=== PATIENT | female | born 1985 | race African-American/Black ===

== ENCOUNTER 2016-06-28 10:30 | Emergency (ER) | payer OTHER ==
[2016-06-28 10:35] VITALS: BP 139/100; PULSE 75; TEMP 98.6; BMI 20.6
[2016-06-28] MEDS ORDERED: LIDOCAINE HCL 2% (50ML VIAL) INF ONE (10:37)
[2016-06-28] MEDS ORDERED: SODIUM BICARBONATE 2.4 MEQ/5 ML SDVIAL NR ONE (10:40)
[2016-06-28] MEDS ORDERED: LIDOCAINE HCL 2% (20ML MULTI-DOSE VIAL) NR ONE (10:43)
[2016-06-28] MEDS ORDERED: SODIUM BICARBONATE 2.4 MEQ/5 ML SDVIAL ONE (10:43)
--- NOTE | 2016-06-28 11:25 | PDOC ---
History of Present Illness - General Chief Complaint: Laceration Stated Complaint: LEFT THUMB LACERATION Time Seen by Provider: 06/28/16 10:37 History Source: Patient Exam Limitations: No Limitations - History of Present Illness Initial Comments: 06/28/16 11:19 CHIEF COMPLAINT: "I cut my thumb." HISTORY OF PRESENT ILLNESS: Patient is a healthy 30-year-old female with no significant past medical history. She was at work this morning using a knife in the kitchen. She is right-handed and she cut her left thumb over the IP joint with a kitchen knife. She went to the nurse at work and she had a dressing applied. She comes in now for evaluation of the wound. There is no numbness to the distal thumb. There is no difficulty with range of motion. Immunizations: Last tetanus was less than 5 years ago REVIEW OF SYSTEMS: No fever or chills Positive laceration of left thumb No other injuries No numbness or weakness in the thumb Past History - Past Medical History Allergies/Adverse Reactions: Allergies Allergy/AdvReac Type Severity Reaction Status Date / Time No Known Allergies Allergy Verified 06/28/16 10:32 Home Medications: Ambulatory Orders Naproxen [EC-Naprosyn] 375 mg PO BID PRN #10 tablet.ec 06/28/16 Other medical history: DENIES - Reproductive History (#): 3 Para: 1 Therapeutic (s) & number: Yes (1) Spontaneous : 1 - Immunization History Immunization Up to Date: Yes - Psycho/Social/Smoking Cessation Hx Anxiety: No Suicidal Ideation: No Smoking History: Never smoked Have you smoked in the past 12 months: No Number of Cigarettes Smoked Daily: 0 Hx Alcohol Use: No Drug/Substance Use Hx: No Substance Use Type: None *Physical Exam - Vital Signs Last Vital Signs Temp Pulse Resp BP Pulse Ox 98.6 F 75 18 139/100 100 06/28/16 10:30 06/28/16 10:30 06/28/16 10:30 06/28/16 10:30 06/28/16 10:30 - Physical Exam Comments: 06/28/16 11:21 GENERAL: The patient is awake, alert, and fully oriented, in no acute distress. HEAD: Normal with no signs of trauma. EYES: Pupils equal, round and reactive to light, extraocular movements intact, sclera anicteric, conjunctiva clear. EXTREMITIES: The left thumb has a laceration overlying the IP joint on the palmar surface. Motor strength of the flexor tendon is full and intact. NEUROLOGICAL: Normal speech, normal gait. Distal sensation over the left thumb is intact to light touch and to pinprick. PSYCH: Normal mood, normal affect. SKIN: Warm, Dry, normal turgor, no rashes or lesions noted. Approximately 1 cm laceration of the left thumb. Procedures - Laceration/Wound Repair Left 1st digit Hand Wound Length: to 2.5 cm Wound Explored: clean, no foreign body present Wound's Depth, Shape: superficial Irrigated w/ Saline: Yes Betadine Prep: (high pressure, high volume saline lavage) Anesthesia: 2% Lidocaine Amount of Anesthetic (ccs): 8 (left thumb digital block) Wound Repaired With: Sutures Suture Size/Type: 5:0 Number of Sutures: 3 Layer Closure: No Sterile Dressing Applied: Yes (bacitracin and dry sterile dressing applied) Progress: 06/28/16 11:24 Patient with left thumb laceration as noted in physical examination sensation and flexion are intact Skin prepped with alcohol at the base of the thumb 2% lidocaine with sodium bicarbonate digital block Good anesthesia obtained and High pressure, high volume normal saline lavage to the open wound, wound explored, no foreign body 5-0 nylon, simple, interrupted 3 placed with good hemostasis Bacitracin and dry sterile dressing Patient advised regarding treatment and follow-up ED Treatment Course - Medications Given in the ED: ED Medications Discontinued Medications Generic Name Dose Route Start Last Admin Trade Name Freq PRN Reason Stop Dose Admin Lidocaine HCl 1 mg 06/28/16 10:37 06/28/16 10:51 Xylocaine 2% INF 06/28/16 10:38 1 mg ONCE ONE Administration Sodium Bicarbonate 1 meq 06/28/16 10:40 06/28/16 10:52 Neut 4% Injection - NR 06/28/16 10:41 1 meq ONCE ONE Administration Medical Decision Making - Medical Decision Making 06/28/16 11:25 Patient with left thumb laceration, less than 1 hour old, clean dry wound with minimal bleeding, no neurovascular or tendon injury Wound repair performed, dressing applied, patient advised *DC/Admit/Observation/Transfer Diagnosis at time of Disposition: Laceration of thumb Qualifiers: Encounter type: initial encounter Laterality: left Qualified Code(s): S61.012A - Laceration without foreign body of left thumb without damage to nail, initial encounter - Discharge Dispostion Disposition: HOME Condition at time of disposition: Stable Admit: No - Prescriptions Prescriptions: Naproxen [EC-Naprosyn] 375 mg PO BID PRN #10 tablet.ec PRN Reason: Pain - Patient Instructions Printed Discharge Instructions: DI for Laceration Repair Additional Instructions: Today you were treated for a laceration to your left thumb. Keep the wound clean and dry. Keep it covered if you're at work. It is okay to remove the dressing and take a shower with clean water. After your shower, at the area dry with a clean towel, apply a thin layer of bacitracin antibiotic ointment, and a Band-Aid. The stitches should be removed in 7 to 8 days, either at your doctor's office or come back to the emergency room for a wound check and suture removal. If you develop any signs of infection such as redness, swelling, pus or red streaks, increasing pain and set of resolving pain, return immediately for evaluation to your doctor or to the emergency room.
== END 2016-06-28 11:35 | disposition home or self-care (01) ==
LOC: FER 10:30
PROC: 0HQGXZZ Repair Left Hand Skin, External Approach (ICD-10-PCS; principal; 2016-06-28)
DX: S61.012A Laceration without foreign body of left thumb without damage to nail, initial encounter (principal); W26.0XXA Contact with knife, initial encounter; Y93.9 Activity, unspecified; Y92.9 Unspecified place or not applicable; Y99.0 Civilian activity done for income or pay
CPT/HCPCS: 99284-25

== ENCOUNTER 2016-08-27 15:10 | Emergency (ER) | payer OTHER ==
[2016-08-27 15:14] VITALS: BP 144/89; PULSE 70; TEMP 98.6; BMI 21.2
--- NOTE | 2016-08-27 15:28 | PDOC ---
History of Present Illness - General Chief Complaint: Toothache Stated Complaint: toothache Time Seen by Provider: 08/27/16 15:16 - History of Present Illness Initial Comments: 08/27/16 15:22 30-year-old female with a negative past medical history She states that her left upper molar had a filling in it She's said that a few months ago it cracked apart and the whole tooth fell out, leaving the root in place She is had some increasing pain and swelling for the past 2 days She has not seen a dentist yet She denies any fevers or chills, and denies any facial swelling Past History - Past Medical History Allergies/Adverse Reactions: Allergies Allergy/AdvReac Type Severity Reaction Status Date / Time No Known Allergies Allergy Verified 08/27/16 15:11 Home Medications: Ambulatory Orders Amoxicillin - [Amoxicillin 500mg Capsule -] 500 mg PO TID #21 capsule 08/27/16 Oxycodone HCl/Acetaminophen [Percocet 5-325 mg Tablet] 1 - 2 combo PO Q6H PRN # 14 tablet MDD 6 08/27/16 Other medical history: DENIES - Reproductive History (#): 3 Para: 1 Therapeutic (s) & number: Yes (1) Spontaneous : 1 - Immunization History TDAP Vaccination: Yes (05/04/13) Immunization Up to Date: Yes - Psycho/Social/Smoking Cessation Hx Anxiety: No Suicidal Ideation: No Smoking History: Never smoked Have you smoked in the past 12 months: No Number of Cigarettes Smoked Daily: 0 Hx Alcohol Use: No Drug/Substance Use Hx: No Substance Use Type: None *Physical Exam - Vital Signs Last Vital Signs Temp Pulse Resp BP Pulse Ox 98.6 F 70 18 144/89 100 08/27/16 15:10 08/27/16 15:10 08/27/16 15:10 08/27/16 15:10 08/27/16 15:10 - Physical Exam Comments: 08/27/16 15:23 Physical exam Last Vital Signs Temp Pulse Resp BP Pulse Ox 98.6 F 70 18 144/89 100 08/27/16 15:10 08/27/16 15:10 08/27/16 15:10 08/27/16 15:10 08/27/16 15:10 Patient is alert and ambulatory and answering questions without difficulties There is no facial swelling or erythema Left upper molar area There is evidence of a lost tooth (L upper molar), with a gap, and the roots of the tooth are still in the gap There is some irritation in the area There is no drainage or bleeding, and no purulent discharge The remainder of the dentition appears normal Mouth and oropharynx is otherwise benign Medical Decision Making - Medical Decision Making 08/27/16 15:24 Broken tooth, with beginnings of secondary dental infection Will treat with Percocet and amoxicillin Patient will need to be seen by a dentist as soon as possible *DC/Admit/Observation/Transfer Diagnosis at time of Disposition: Pain, dental, Dental infection - Discharge Dispostion Disposition: HOME Condition at time of disposition: Stable - Prescriptions Prescriptions: Amoxicillin - [Amoxicillin 500mg Capsule -] 500 mg PO TID #21 capsule Oxycodone HCl/Acetaminophen [Percocet 5-325 mg Tablet] 1 - 2 combo PO Q6H PRN # 14 tablet MDD 6 PRN Reason: Pain - Patient Instructions Printed Discharge Instructions: DI for Dental Pain Additional Instructions: Motrin for daytime pain Percocet if needed for more severe pain-do not drive when taking this medication Amoxicillin-one pill 3 times a day Please see a dentist as soon as possible - Post Discharge Activity Work/School Note: Back to Work
== END 2016-08-27 15:41 | disposition home or self-care (01) ==
LOC: FER 15:10
DX: K03.81 Cracked tooth (principal); K04.7 Periapical abscess without sinus; K08.89 Other specified disorders of teeth and supporting structures
CPT/HCPCS: 99282-25

== ENCOUNTER 2016-09-08 18:32 | Emergency (ER) | payer OTHER ==
[2016-09-08 18:42] VITALS: BP 150/86; PULSE 100; TEMP 98; BMI 20.7
--- NOTE | 2016-09-08 19:54 | PDOC ---
History of Present Illness - General Chief Complaint: Rash Stated Complaint: RASH Time Seen by Provider: 09/08/16 19:37 History Source: Patient Exam Limitations: No Limitations - History of Present Illness Initial Comments: 09/08/16 19:49 30 year old female with no significant medical or surgical history presents with rash all over body x 2 weeks. States no recent travels or ill contacts. Rash is no accompanied by any other symptoms. Timing/Duration: reports: other (2 weeks) Severity: Yes: mild Location: reports: generalized Respiratory Risk Factors: reports: no cause identified Modifying Factors: improves with: scratching Associated Symptoms: reports: denies symptoms Past History - Travel Traveled outside of the country in the last 30 days: No Close contact w/someone who was outside of country & ill: No - Past Medical History Allergies/Adverse Reactions: Allergies Allergy/AdvReac Type Severity Reaction Status Date / Time No Known Allergies Allergy Verified 09/08/16 18:42 Home Medications: Ambulatory Orders Amoxicillin - [Amoxicillin 500mg Capsule -] 500 mg PO TID #21 capsule 08/27/16 Oxycodone HCl/Acetaminophen [Percocet 5-325 mg Tablet] 1 - 2 combo PO Q6H PRN # 14 tablet MDD 6 08/27/16 Hydrocortisone 1% Cream [Hytone 1% Cream -] 1 applic TP BID #1 tube 09/08/16 - Reproductive History (#): 3 Para: 1 Therapeutic (s) & number: Yes (1) Spontaneous : 1 - Immunization History TDAP Vaccination: Yes (05/04/13) Immunization Up to Date: Yes - Psycho/Social/Smoking Cessation Hx Anxiety: No Suicidal Ideation: No Smoking History: Never smoked Have you smoked in the past 12 months: No Number of Cigarettes Smoked Daily: 0 Information on smoking cessation initiated: No Hx Alcohol Use: No Drug/Substance Use Hx: No Substance Use Type: None Review of Systems - Review of Systems Able to Perform ROS?: Yes Constitutional: No: Chills, Fever, Night Sweats, Weakness HEENTM: No: Nose Pain, Nose Congestion, Nose Bleeding, Throat Pain, Throat Swelling, Mouth Pain Respiratory: No: Cough, Orthopnea, Shortness of Breath, Wheezing, Productive cough Cardiac (ROS): No: Edema, Palpitations : No: Burning, Incontinence Musculoskeletal: No: Back Pain, Gout, Joint Pain, Joint Swelling Integumentary: No: Bruising, Flushing, Lesions Neurological: No: Numbness, Paresthesia, Weakness *Physical Exam - Vital Signs Last Vital Signs Temp Pulse Resp BP Pulse Ox 98 F 100 H 18 150/86 99 09/08/16 18:40 09/08/16 18:40 09/08/16 18:40 09/08/16 18:40 09/08/16 18:40 - Physical Exam General Appearance: Yes: Nourished, Appropriately Dressed. No: Apparent Distress HEENT: positive: EOMI, STEFANO, Normal ENT Inspection, TMs Normal, Pharynx Normal Neck: positive: Supple. negative: Lymphadenopathy (R), Lymphadenopathy (L) Respiratory/Chest: positive: Lungs Clear Cardiovascular: positive: Regular Rhythm, Regular Rate, S1, S2 Extremity: positive: Normal Capillary Refill, Normal Inspection, Normal Range of Motion. 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 Also requesting gc/chlamydia testing 09/08/16 22:53 Rx: hydrocortisone *DC/Admit/Observation/Transfer Diagnosis at time of Disposition: Rash and nonspecific skin eruption - Discharge Dispostion Disposition: HOME Condition at time of disposition: Improved Admit: No - Prescriptions Prescriptions: Hydrocortisone 1% Cream [Hytone 1% Cream -] 1 applic TP BID #1 tube - Referrals Referrals: Luzma Jain MD [Primary Care Provider] - - Patient Instructions Additional Instructions: Use mild unscented lotion and soap. May return for shortness of breath or worsening of rash - Post Discharge Activity Work/School Note: Back to Work
== END 2016-09-08 20:18 | disposition home or self-care (01) ==
LOC: JERFT 18:32
DX: R21 Rash and other nonspecific skin eruption (principal)
CPT/HCPCS: 36415; 87491; 87591; 99281-25

== ENCOUNTER 2016-09-14 20:16 | Emergency (ER) | payer OTHER ==
--- NOTE | 2016-09-14 20:23 | PDOC ---
History of Present Illness - General History Source: Patient Exam Limitations: No Limitations - History of Present Illness Initial Comments: 09/14/16 20:34 The patient is a 30 year old female, with significant past medical history of a dental abscess on 08/27/16 (prescribed amoxicillin) , who presents today complaining of a rash on her arms, legs, and back that started while taking amoxicillin. She states that the rash is itchy and irritating. She visited [facility] 2 days ago for the rash and was given a hydrocortisone cream that she has used without relief. She notes that she has taken amoxicillin previously without a reaction Denies fever, chills, nausea, vomiting. Review of Systems General: No fevers or chills, no weakness, no weight loss HEENT: No change in vision. No sore throat,. No ear pain CardioVascular: No chest pain or shortness of breath Respiratory:No cough, or wheezing. Gastrointestinal: no nausea, vomiting, diarrhea or constipation, No rectal bleeding Genitourinary: No dysuria, hematuria, or frequency Musculoskeletal: No joint or muscle pain or swelling Neurologic: No headache, vertigo, dizziness or loss of consciousness Psychiatric: nor depression Skin: +rash on the back, arms and legs bilaterally.No rashes or easy bruising Endocrine: no increased thirst or abnormal weight change Allergic: no skin or latex allergy All other systems reviewed and normal Physical Exam GENERAL: The patient is awake, alert, and fully oriented, in no acute distress. HEAD: Normal with no signs of trauma. EYES: Pupils equal, round and reactive to light, extraocular movements intact, sclera anicteric, conjunctiva clear. EXTREMITIES: Normal range of motion, no edema. NEUROLOGICAL: Normal speech, normal gait. PSYCH: Normal mood, normal affect. SKIN: Fine papular rash on bilateral extremities and trunk. Warm, Dry, normal turgor, no lesions noted. <Lesvia Krishnan - Last Filed: 09/14/16 20:34> - General History Source: Patient Exam Limitations: No Limitations - History of Present Illness Initial Comments: 09/14/16 20:48 A portion of this note was documented by scribe services under my direction. I have reviewed the details of the note, within reason, and agree with the documentation. The case summary and management plan written by me. Assessment and plan: This is a 30-year-old female comes in with a rash status post being given amoxicillin. Patient was given some topical cream for it but it has not resolved so I started her on some prednisone. Patient given first dose here and discharged with a Medrol Dosepak. <Francis Spaulding I - Last Filed: 09/14/16 20:52> - General Chief Complaint: Rash Stated Complaint: ITCHING RASH Time Seen by Provider: 09/14/16 20:22 Past History <Lesvia Krishnan - Last Filed: 09/14/16 20:34> - Reproductive History (#): 3 Para: 1 Therapeutic (s) & number: Yes (1) Spontaneous : 1 - Immunization History TDAP Vaccination: Yes (05/04/13) Immunization Up to Date: Yes - Psycho/Social/Smoking Cessation Hx Anxiety: No Suicidal Ideation: No Smoking History: Never smoked Have you smoked in the past 12 months: No Number of Cigarettes Smoked Daily: 0 Hx Alcohol Use: No Drug/Substance Use Hx: No Substance Use Type: None <Francis Spaulding I - Last Filed: 09/14/16 20:52> - Past Medical History Allergies/Adverse Reactions: Allergies Allergy/AdvReac Type Severity Reaction Status Date / Time amoxicillin Allergy Mild Rash Verified 09/14/16 20:37 Home Medications: Ambulatory Orders Methylprednisolone [Medrol Dose Deshawn] 4 mg PO ASDIR #21 tablet 09/14/16 *Physical Exam - Vital Signs Last Vital Signs Temp Pulse Resp BP Pulse Ox 98.0 F 80 16 140/100 100 09/14/16 20:21 09/14/16 20:21 09/14/16 20:21 09/14/16 20:21 09/14/16 20:21 <Lesvia Krishnan - Last Filed: 09/14/16 20:34> *DC/Admit/Observation/Transfer - Attestations Scribe Attestion: 09/14/16 20:35 Documentation prepared by MARILY Santos, acting as product manager medical device for Francis Spaulding MD. <Lesvia Krishnan - Last Filed: 09/14/16 20:34> - Discharge Dispostion Admit: No <Francis Spaulding I - Last Filed: 09/14/16 20:52> Diagnosis at time of Disposition: Allergic drug rash - Discharge Dispostion Disposition: HOME Condition at time of disposition: Good - Prescriptions Prescriptions: Methylprednisolone [Medrol Dose Deshawn] 4 mg PO ASDIR #21 tablet - Referrals Referrals: Luzma Jain MD [Primary Care Provider] - - Patient Instructions Additional Instructions: Get the prescription filled for the Medrol Dosepak and started tomorrow evening take the medication with dinner don't take on an empty stomach Return to the emergency department immediately with ANY new, persistent or worsening symptoms. Continue any medications as previously prescribed by your physician. You should follow up with your primary doctor as soon as possible regarding today's emergency department visit. . Please make sure your doctor reviews the results of your emergency evaluation. Thank you for coming to the Emergency Department today for your care. It was a pleasure to see you today. Please note that your evaluation is INCOMPLETE until you follow-up with your doctor. Make sure that you tell you're healthcare providers you're ALLERGIC to penicillin so it isn't given 2 units future
[2016-09-14] MEDS ORDERED: predniSONE 20 MG TABLET (UD) PO ONE (20:30)
[2016-09-14] MEDS ORDERED: predniSONE 20 MG TABLET (UD) ONE (20:34)
[2016-09-14 20:38] VITALS: BP 140/100; PULSE 80; TEMP 98; BMI 20.6
== END 2016-09-14 20:47 | disposition home or self-care (01) ==
LOC: FER 20:16
DX: L27.0 Generalized skin eruption due to drugs and medicaments taken internally (principal)
CPT/HCPCS: 99281-25

== ENCOUNTER 2018-02-02 15:12 | Emergency (ER) | payer SELFPAY ==
--- NOTE | 2018-02-02 15:19 | PDOC ---
History of Present Illness - General Chief Complaint: Cold Symptoms Stated Complaint: COUGH Time Seen by Provider: 02/02/18 15:18 - History of Present Illness Initial Comments: Joyce is a 32 yo F with a pmh of Asthma who presents for a dry cough of the past 3 weeks. She had what she describes as URI symptoms 3 weeks prior with nasal congestion, sore throught, and originally produced a bit of sputum with her cough. She is presenting to the ER today because she is worried and concerned that the cough has not gone away. It is a dry cough which is worse at night. She denies taking any medications for Asthma. She denies taking DURAN inhibitors or ARBs. Denies postprandial abdominal pain or other GERD like symptoms. Denies chest pain, SOB, difficulty breathing. Denies abdominal pain, back pain, neck pain, headache, blurry vision, recent travel, calf pain, or any other complaints. Allergies: Seasonal, penicillin, amoxicillin. Social Hx: Denies cigarette, alcohol, or illicit drug usage. Pcp: Jean Terrell Past History - Past Medical History Allergies/Adverse Reactions: Allergies Allergy/AdvReac Type Severity Reaction Status Date / Time amoxicillin Allergy Mild Rash Verified 02/02/18 15:13 Penicillins Allergy Verified 02/02/18 15:13 Home Medications: Ambulatory Orders Dextromethorphan Hb/Doxylamine [Robitussin Nighttime Cough Dm] 237 ml PO DAILY # 10 liquid 02/02/18 Fluticasone/Salmeterol [Advair 250-50 Diskus] 1 each IH BID #1 blst.w.dev Norethindrone AC-Eth Estradiol [Junel] 1 each PO DAILY 02/02/18 COPD: No - Reproductive History (#): 3 Para: 1 Therapeutic (s) & number: Yes (1) Spontaneous : 1 - Immunization History TDAP Vaccination: Yes (05/04/13) Immunization Up to Date: Yes - Suicide/Smoking/Psychosocial Hx Smoking History: Never smoked Have you smoked in the past 12 months: No Number of Cigarettes Smoked Daily: 0 Hx Alcohol Use: No Drug/Substance Use Hx: No Substance Use Type: None Review of Systems - Review of Systems Able to Perform ROS?: Yes Comments:: CONSTITUTIONAL: Absent: fever, no chills, no fatigue EYES: Absent: visual changes ENT: Present: sore throat Absent: ear pain CARDIOVASCULAR: Absent: chest pain, no palpitations RESPIRATORY: Present: Cough Absent: no SOB GI: Absent: abdominal pain, no nausea, no vomiting, no constipation, no diarrhea GENITOURINARY: Absent: dysuria, no frequency, no hematuria MUSKULOSKELETAL: Absent: back pain, no arthralgia, no myalgia SKIN: Absent: rash NEURO: Absent: headache *Physical Exam - Vital Signs Last Vital Signs Temp Pulse Resp BP Pulse Ox 0/0 L 02/02/18 15:12 - Physical Exam Comments: GENERAL: Well-appearing, well-nourished. No apparent distress. HEENT: Oropharynx is clear. No lymphadenopathy. Normocephalic, atraumatic. PERRL, EOM intact. CARDIOVASCULAR: Normal S1, S2. Regular rate and rhythm. PULMONARY: Clear to auscultation bilaterally. ABDOMEN: Soft, non-distended, non-tender. EXTREMITIES: Normal ROM in all four extremities. No gross deformities. SKIN: Warm, dry. No rash NEUROLOGICAL: No focal neurological deficits. Medical Decision Making - Medical Decision Making Joyce is a 32 yo F with a pmh of Asthma who presents for a dry cough of the past 3 weeks. There are no sings of infection, no worrisome factors associated with this patient. DD includes but not limited to: Upper airway cough syndrome/postnasal drip vs asthma related cough vs GERD related cough. Plan: Rik [place]. *DC/Admit/Observation/Transfer Diagnosis at time of Disposition: Upper airway cough syndrome, Postnasal drip, Cough variant asthma - Discharge Dispostion Disposition: HOME Condition at time of disposition: Stable Decision to Admit order: No - Prescriptions Prescriptions: Dextromethorphan Hb/Doxylamine [Andreaitusjasmin Nighttime Cough Dm] 237 ml PO DAILY # 10 liquid Fluticasone/Salmeterol [Advair 250-50 Diskus] 1 each IH BID #1 blst.w.dev - Referrals Referrals: Davion Dent MD [Staff Physician] - - Patient Instructions Printed Discharge Instructions: Cough (Alternative Therapy), Cough, DI for Cough -- Adult, [place], Dextrometorfano Additional Instructions: You came into the ER because you were having an annoying dry cough. We believe your cough is likely a result of either asthma or seasonal allergies. We are sending a prescription of Advair and robitussin to you [facility] pharmacy. Please make sure to go and pick it up. Please also make sure to follow up with your primary care doctor in the next 7 to 10 days to ensure you are feeling and getting better and your cough is being resolved. Please come back to the emergency room if your develop new or worsening symptoms such as a worsening cough, blood in your cough, a high fever, vomiting, shortness of breath or difficulty breathing or any other concerns. Thank you for coming to the [facility]. We hope you feel beter soon! Print Language: KOREAN - Post Discharge Activity
[2018-02-02 15:22] VITALS: BMI 24.4
[2018-02-02 15:31] VITALS: BP 130/84; PULSE 86; TEMP 98.6
--- NOTE | 2018-02-02 15:34 | PDOC ---
Attending Attestation - Resident Resident Name: Kenneth Ocasio - ED Attending Attestation I have performed the following: I have examined & evaluated the patient, The case was reviewed & discussed with the resident, I agree w/resident's findings & plan, Exceptions are as noted - HPI HPI: 02/02/18 16:21 Nonproductive cough for 3 weeks. Seasonal ALLERGY symptoms. No shortness of breath, chest pain, fever or chills, or sputum - Physicial Exam PE: 02/02/18 16:21 Afebrile, vital signs normal including normal respiratory rate in the 100% oxygen saturation Lungs are clear. No wheezes rales or rhonchi. Full breath sounds ENT clear - Medical Decision Making 02/02/18 16:22 This is not appear to be infectious. It is most likely seasonal ALLERGIES with bronchospasm, and asthma-like syndrome. The patient is not known to be asthmatic , although she seems to have similar symptoms during the spring and fall Plan trial of cough suppressant at night, inhaled laba and corticosteroid. Follow up book sewer for further
[2018-02-02] MEDS ORDERED: ACETAMINOPHEN 325 MG TABLET (FP) PO ONE (16:00)
[2018-02-02] MEDS ORDERED: guaiFENesin/CODEINE 10 ML UNIT-DOSE CUPS PO ONE (16:00)
[2018-02-02] MEDS ORDERED: guaiFENesin/D-METHORPHAN HB 10 ML UNIT-DOSE CUPS ONE (16:13)
[2018-02-02] MEDS ORDERED: guaiFENesin 200 MG/10 ML 10 ML UNIT-DOSE CUPS PO ONE (16:14)
[2018-02-02] MEDS ORDERED: ACETAMINOPHEN 325 MG TABLET (FP) ONE (16:14)
[2018-02-02] MEDS ORDERED: guaiFENesin/D-METHORPHAN HB 10 ML UNIT-DOSE CUPS PO ONE (16:17)
== END 2018-02-02 16:19 | disposition home or self-care (01) ==
LOC: FER 15:12
DX: R05 Cough (principal); R09.82 Postnasal drip; J45.998 Other asthma
CPT/HCPCS: 99281-25

== ENCOUNTER 2018-03-28 22:21 | Emergency (ER) | payer SELFPAY ==
--- NOTE | 2018-03-28 22:24 | PDOC ---
History of Present Illness - History of Present Illness Initial Comments: This is a 32 year old female with no significant past medical history, who presents to the emergency department today complaining of right lower leg pain for 1 day. Patient reports that she began to feel pain and soreness in the lateral aspect of her right lower leg yesterday without any specific trauma. She denies any contusion to the area. Patient notes soreness is exacerbated with walking and when touching the affected area. She reports the pain is localized to the affected area, and denies any radicular symptoms. Patient denies history of similar symptoms. The patient denies chest pain, shortness of breath, headache and dizziness. Denies fever, chills, nausea, vomit, diarrhea and constipation. Denies dysuria, frequency, urgency and hematuria. PAST MEDICAL HISTORY: no significant history PAST SURGICAL HISTORY: no significant history FAMILY HISTORY: no pertinent history SOCIAL HISTORY: Pt lives with family and is employed. MEDICATIONS: reviewed ALLERGIES: As per nursing notes ROS General: No fevers or chills, no weakness, no weight loss HEENT: No change in vision. No sore throat,. No ear pain CardioVascular: No chest pain or shortness of breath Respiratory:No cough, or wheezing. Gastrointestinal: no nausea, vomiting, diarrhea or constipation, No rectal bleeding Genitourinary: No dysuria, hematuria, or frequency Musculoskeletal: +Right lower leg pain and soreness. No joint or muscle swelling. Neurologic: No headache, vertigo, dizziness or loss of consciousness Psychiatric: nor depression Skin: No rashes or easy bruising Endocrine: no increased thirst or abnormal weight change Allergic: no skin or latex allergy All other systems reviewed and normal PE GENERAL: The patient is awake, alert, and fully oriented, in no acute distress. HEAD: Normal with no signs of trauma. EYES: Pupils equal, round and reactive to light, extraocular movements intact, sclera anicteric, conjunctiva clear. EXTREMITIES: +Right lower leg small contusion/bruise laterally with palpable tenderness. No bony tenderness. No calf tenderness. Normal range of motion, no edema. NEUROLOGICAL: Normal speech, normal gait. PSYCH: Normal mood, normal affect. SKIN: Warm, Dry, normal turgor, no rashes or lesions noted. 03/28/18 22:36 <Rosa Gil - Last Filed: 12/03/18 22:36> - General History Source: Patient Exam Limitations: No Limitations - History of Present Illness Initial Comments: A portion of this note was documented by scribe services under my direction. I have reviewed the details of the note, within reason, and agree with the documentation with the following case summary and management plan written by me. Patient treated in the ED. Nursing notes are reviewed and incorporated into the medical decision-making. Vital signs reviewed. Assessment and plan: This is a 32-year-old female who comes in complaining of pain on her right lateral leg. Patient was noted to have a small contusion of the area. The pain was isolated to the area of contusion. Patient was reassured and discharged home 03/28/18 23:01 <Francis Spaulding I - Last Filed: 03/28/18 23:02> - General Chief Complaint: Pain Stated Complaint: PAIN RIGHT LOWER LEG Time Seen by Provider: 03/28/18 22:24 Past History <Rosa Gil - Last Filed: 03/28/18 22:36> - Past Medical History COPD: No - Reproductive History (#): 3 Para: 1 Therapeutic (s) & number: Yes (1) Spontaneous : 1 - Immunization History TDAP Vaccination: Yes (05/04/13) Immunization Up to Date: Yes - Suicide/Smoking/Psychosocial Hx Smoking History: Never smoked Have you smoked in the past 12 months: No Number of Cigarettes Smoked Daily: 0 Hx Alcohol Use: No Drug/Substance Use Hx: No Substance Use Type: None <Francis Spaulding I - Last Filed: 03/28/18 23:02> - Past Medical History Allergies/Adverse Reactions: Allergies Allergy/AdvReac Type Severity Reaction Status Date / Time amoxicillin Allergy Mild Rash Verified 03/28/18 22:23 Penicillins Allergy Verified 03/28/18 22:23 Home Medications: Ambulatory Orders Fluticasone/Salmeterol [Advair 250-50 Diskus] 1 each IH BID #1 blst.w.dev *Physical Exam - Vital Signs Last Vital Signs Temp Pulse Resp BP Pulse Ox 98.4 F 80 16 141/105 H 100 03/28/18 22:29 03/28/18 22:29 03/28/18 22:29 03/28/18 22:29 03/28/18 22:29 <Rosa Gil - Last Filed: 03/28/18 22:36> Moderate Sedation - Procedure Monitoring Vital Signs: Procedure Monitoring Vital Signs Temperature 98.4 F 03/28/18 22:29 Pulse Rate 80 03/28/18 22:29 Respiratory Rate 16 03/28/18 22:29 Blood Pressure 141/105 H 03/28/18 22:29 O2 Sat by Pulse Oximetry (%) 100 03/28/18 22:29 <Rosa Gil - Last Filed: 03/28/18 22:36> *DC/Admit/Observation/Transfer - Attestations Scribe Attestion: 03/28/18 22:38 Documentation prepared by MARILY Melchor, acting as medical videographer for Francis Spaulding MD. <Rosa Gil - Last Filed: 03/28/18 22:36> - Discharge Dispostion Decision to Admit order: No <Francis Spaulding I - Last Filed: 03/28/18 23:02> Diagnosis at time of Disposition: Contusion of right lower leg - Discharge Dispostion Disposition: HOME Condition at time of disposition: Stable - Patient Instructions Additional Instructions: Return to the emergency department immediately with ANY new, persistent or worsening symptoms. Continue any medications as previously prescribed by your physician. You should follow up with your primary doctor as soon as possible regarding today's emergency department visit. . Please make sure your doctor reviews the results of your emergency evaluation. Thank you for coming to the Emergency Department today for your care. It was a pleasure to see you today. Please note that your evaluation is INCOMPLETE until you follow-up with your doctor.
[2018-03-28 22:32] VITALS: BP 141/105; PULSE 80; TEMP 98.4; BMI 24.1
== END 2018-03-28 22:38 | disposition home or self-care (01) ==
LOC: FER 22:21
DX: S80.11XA Contusion of right lower leg, initial encounter (principal)
CPT/HCPCS: 99281-25

== ENCOUNTER 2018-09-19 16:48 | Emergency (ER) | payer OTHER ==
--- NOTE | 2018-09-19 16:57 | PDOC ---
Rapid Medical Evaluation Chief Complaint: Vaginal Sxs Time Seen by Provider: 09/19/18 16:50 Medical Evaluation: Allergies Allergy/AdvReac Type Severity Reaction Status Date / Time amoxicillin Allergy Mild Rash Verified 03/28/18 22:23 Penicillins Allergy Verified 03/28/18 22:23 09/19/18 16:56 I have performed a brief in-person evaluation of this patient. The patient presents with a chief complaint of: "I think I have BV." Pertinent physical exam findings: deferred I have ordered the following: urine The patient will proceed to the ED for further evaluation. Discharge Disposition - Diagnosis Vaginal pain - Referrals - Patient Instructions - Post Discharge Activity
[2018-09-19 17:05] VITALS: BP 129/85; PULSE 82; TEMP 98.5; BMI 24.1
--- NOTE | 2018-09-19 17:52 | PDOC ---
History of Present Illness - General Chief Complaint: Vaginal Sxs Stated Complaint: PAIN Time Seen by Provider: 09/19/18 16:50 History Source: Patient Exam Limitations: Clinical Condition - History of Present Illness Initial Comments: 09/19/18 18:09 Patient with no significant past medical history present with complaint of 2 weeks history of yellow foul-smelling vaginal discharge which she believes is bacterial vaginosis. Patient reported having bacterial vaginosis in the past with same symptoms. Patient is sexually active with one partner. Denies abdominal pain, vaginal bleeding or urinary symptoms. LMP August 30 Timing/Duration: other (2 weeks) Past History - Past Medical History Allergies/Adverse Reactions: Allergies Allergy/AdvReac Type Severity Reaction Status Date / Time amoxicillin Allergy Mild Rash Verified 09/19/18 17:23 Penicillins Allergy Verified 09/19/18 17:23 Home Medications: Ambulatory Orders Fluconazole [Diflucan] 150 mg PO ONCE #1 tablet 09/19/18 Metronidazole 500 mg PO BID 7 Days #14 tablet 09/19/18 COPD: No - Reproductive History (#): 3 Para: 1 Therapeutic (s) & number: Yes (1) Spontaneous : 1 - Immunization History TDAP Vaccination: Yes (05/04/13) Immunization Up to Date: Yes - Suicide/Smoking/Psychosocial Hx Smoking History: Never smoked Have you smoked in the past 12 months: No Number of Cigarettes Smoked Daily: 0 Hx Alcohol Use: No Drug/Substance Use Hx: No Substance Use Type: None Review of Systems - Review of Systems Able to Perform ROS?: Yes Is the patient limited Serbian proficient: No Constitutional: No: Weakness HEENTM: No: Symptoms Reported Respiratory: No: Symptoms reported Cardiac (ROS): No: Symptoms Reported ABD/GI: No: Symptoms Reported, Nausea, Vomiting, Abdominal cramping : Yes: Discharge (yellow fishy discharge). No: Burning, Dysuria, Frequency, Flank Pain All Other Systems: Reviewed and Negative *Physical Exam - Vital Signs Last Vital Signs Temp Pulse Resp BP Pulse Ox 98.5 F 82 16 129/85 99 09/19/18 16:54 09/19/18 16:54 09/19/18 16:54 09/19/18 16:54 09/19/18 16:54 - Physical Exam General Appearance: Yes: Nourished, Appropriately Dressed. No: Apparent Distress HEENT: positive: Normal ENT Inspection Neck: positive: Supple Respiratory/Chest: positive: Normal Breath Sounds. negative: Respiratory Distress, Accessory Muscle Use Cardiovascular: positive: Regular Rhythm, Regular Rate Female Pelvic Exam: positive: normal external exam, cervical os closed, normal adnexa, discharge (moderate amount of yellow foul malorodorous discharge in vaginal vault. no visible lesions. no blood in vault). negative: CMT, lesions, adnexal tenderness, vaginal bleeding Musculoskeletal: positive: Normal Inspection. negative: CVA Tenderness Extremity: positive: Normal Inspection Integumentary: positive: Normal Color Neurologic: positive: Fully Oriented, Alert, Normal Response Medical Decision Making - Medical Decision Making 09/19/18 18:10 Patient with no significant past medical history present with complaint of 2 weeks history of yellow foul-smelling vaginal discharge which she believes is bacterial vaginosis. Patient reported having bacterial vaginosis in the past with same symptoms. Patient is sexually active with one partner. Denies abdominal pain, vaginal bleeding or urinary symptoms. LMP August 30 Exam significant for moderate amount of foul smelling fishy malodorous discharge in vaginal vault. No blood in vaginal vault. Cervical os closed. No CMT bilateral. Symptoms likely bacterial vaginosis versus less likely vaginal yeast. Culture of discharge obtained. Gonorrhea and chlamydia tests by vaginal swab tests ordered. Patient unable to give urine for urine tenderness but denies urinary symptoms. Patient report she is not . Patient is stable for outpatient management on metronidazole for a week and Diflucan pending culture results with [facility]AGGER follow-up *DC/Admit/Observation/Transfer Diagnosis at time of Disposition: Vaginal pain Vaginitis Qualifiers: Chronicity: acute Qualified Code(s): N76.0 - Acute vaginitis - Discharge Dispostion Disposition: HOME Condition at time of disposition: Stable Decision to Admit order: No - Prescriptions Prescriptions: Fluconazole [Diflucan] 150 mg PO ONCE #1 tablet Metronidazole 500 mg PO BID 7 Days #14 tablet - Referrals Referrals: Mary Kate Davis MD [Primary Care Provider] - - Patient Instructions Printed Discharge Instructions: DI for Vaginal Yeast Infection, DI for Vaginal Discharge Additional Instructions: Take medications as prescribed. Your will be called with lab results - Post Discharge Activity
== END 2018-09-19 18:07 | disposition home or self-care (01) ==
LOC: JERFT 16:48 → JER 16:48 → JERFT 18:07
DX: N76.0 Acute vaginitis (principal)
CPT/HCPCS: 36415; 87070; 87077; 87205; 87491; 87591; 87661; 99281-25

== ENCOUNTER 2018-10-24 04:44 | Emergency (ER) | payer OTHER ==
[2018-10-24 04:54] VITALS: BP 120/83; PULSE 100; TEMP 100.2; BMI 21.6
[2018-10-24] MEDS ORDERED: DOXYCYCLINE HYCLATE 100 MG CAPSULE PO ONE ×2 (05:02)
[2018-10-24] MEDS ORDERED: ACETAMINOPHEN 325 MG TABLET (FP) ONE (05:03)
[2018-10-24] MEDS ORDERED: ACETAMINOPHEN 325 MG TABLET (FP) PO ONE (05:06)
--- NOTE | 2018-10-24 05:07 | PDOC ---
History of Present Illness - General Chief Complaint: Pain Stated Complaint: BILATERAL EAR PAIN SINCE WEDNESDAY Time Seen by Provider: 10/24/18 04:46 - History of Present Illness Initial Comments: This otherwise healthy 32-year-old woman presents with a 4 day history of bilateral ear pain. She was seen in urgent care 2 days ago and started on a course of azithromycin as well as polymyxin eardrops. She states that pain and fever has been persistent ; she also has throat discomfort. She has been taking ibuprofen as needed for pain and fever No history of ear infections as an adult. She denies recent swimming or use of earbuds. She states that she uses cotton swabs in her ears frequently. No cough/stiff neck/rash or GI symptoms Patient has previous history of amoxicillin/penicillin ALLERGY (generalized hives) Past History - Past Medical History Allergies/Adverse Reactions: Allergies Allergy/AdvReac Type Severity Reaction Status Date / Time amoxicillin Allergy Mild Rash Verified 10/24/18 04:46 Penicillins Allergy Verified 10/24/18 04:46 Home Medications: Ambulatory Orders Doxycycline Hyclate 100 mg PO BID #14 capsule 10/24/18 COPD: No Other medical history: DENIES - Reproductive History (#): 3 Para: 1 Therapeutic (s) & number: Yes (1) Spontaneous : 1 - Immunization History TDAP Vaccination: Yes (05/04/13) Immunization Up to Date: Yes - Suicide/Smoking/Psychosocial Hx Smoking History: Never smoked Have you smoked in the past 12 months: No Number of Cigarettes Smoked Daily: 0 Information on smoking cessation initiated: No Hx Alcohol Use: No Drug/Substance Use Hx: No Substance Use Type: None Review of Systems - Review of Systems Able to Perform ROS?: Yes Comments:: 12 point review of systems is negative except for what is noted in the history of present illness *Physical Exam - Vital Signs Last Vital Signs Temp Pulse Resp BP Pulse Ox 100.2 F H 100 H 18 120/83 100 10/24/18 04:47 10/24/18 04:47 10/24/18 04:47 10/24/18 04:47 10/24/18 04:47 - Physical Exam Comments: GENERAL:Adult female in mild distress secondary to ear pain; temp 100.2(orally) HEAD: Normal with no signs of trauma. EYES: PERRLA, EOMI, sclera anicteric, conjunctiva clear. ENT: Marked edema bilateral external auditory canal; no scaling noted Tympanic membrane not visualized on the right; portion of TM seen on left(dull/ bulging) Mucous membranes dry Mild erythema pharynx without exudates or edema. NECK: Normal range of motion, supple ;bilateral anterior cervical LN enlargement (mildly tender); no stridor LUNGS: Breath sounds equal, clear to auscultation bilaterally. No wheezes, and no crackles. NEUROLOGICAL: Cranial nerves II through XII grossly intact. Normal speech. No focal neurological deficits. SKIN: Warm, Dry, normal turgor, no rashes or lesions noted. Medical Decision Making - Medical Decision Making This otherwise healthy 32-year-old woman presents with persistent bilateral otitis externa/probable bilateral otitis media with fever and pharyngitis. Patient had been prescribed antibiotic ear drops as well as azithromycin with apparent progression of symptoms. Although the patient has significant edema/inflammation of both of her ear canals, and likely infectious/inflammatory process of bilateral TM, no evidence of airway compromise or severe systemic illness. Therefore, we will continue with current therapeutic plan but will change antibiotics ( doxycycline instead of azithromycin). The patient will need referral to ENT for placement of ayla in bilateral canals. referral information will be given to the patient. She should return to the emergency room if she has any difficulty with swallowing/breathing, persistent high fever or severe persistent pain *DC/Admit/Observation/Transfer Diagnosis at time of Disposition: Otitis externa Qualifiers: Otitis externa type: unspecified type Chronicity: acute Laterality: bilateral Qualified Code(s): H60.503 - Unspecified acute noninfective otitis externa, bilateral Otitis media Qualifiers: Otitis media type: suppurative Chronicity: acute Laterality: bilateral Recurrence: non-recurrent Spontaneous tympanic membrane rupture: without spontaneous rupture Qualified Code(s): H66.003 - Acute suppurative otitis media without spontaneous rupture of ear drum, bilateral - Discharge Dispostion Disposition: HOME Condition at time of disposition: Stable - Prescriptions Prescriptions: Doxycycline Hyclate 100 mg PO BID #14 capsule - Referrals Referrals: John Greer MD [Staff Physician] - 2 Days - Patient Instructions Printed Discharge Instructions: Middle Ear Infection, DI for Otitis Externa Additional Instructions: continue ear drops as prescribed stop azithromycin begin doxycycline 100mg twice a day for 1 week avoid taking doxycycline with dairy products/avoid lying down for one hour after dose of doxycycline alternate Motrin with Tylenol as discussed drink plenty of water call Dr Greer's office this AM and arrange followup within 1-2 days return to ER if you have severe difficulty swallowing or persistent high fever - Post Discharge Activity Forms/Work/School Notes: Back to Work
== END 2018-10-24 05:18 | disposition home or self-care (01) ==
LOC: FER 04:44
DX: H60.503 Unspecified acute noninfective otitis externa, bilateral (principal); H66.003 Acute suppurative otitis media without spontaneous rupture of ear drum, bilateral
CPT/HCPCS: 99281-25

== ENCOUNTER 2020-10-15 01:02 | Emergency (ER) | payer OTHER ==
[2020-10-15 01:11] VITALS: BP 130/98; PULSE 93; TEMP 98; BMI 24.9
== END 2020-10-15 01:19 | disposition home or self-care (01) ==
LOC: FER 01:02
DX: M25.531 Pain in right wrist (principal)
CPT/HCPCS: 99281-25